=== PATIENT | female | born 1985 | race Caucasian/White ===

== ENCOUNTER 2017-04-12 03:28 | Inpatient (IN) | payer OTHER ==
[2017-04-12] MEDS ORDERED: Sodium Citrate/Citric Acid* 15 ML UDC ONE (07:18)
[2017-04-12] MEDS ORDERED: ceFOXitin 2 GM IVPREMIX* 2 GM/50 ML BAG ONE (07:19)
[2017-04-12] MEDS ORDERED: Morphine PF AMP (0.5MG/ML)* 5 MG/10 ML AMP ONE (07:46)
[2017-04-12] MEDS ORDERED: Nalbuphine* 20 MG/ML 1 ML VIAL IV PRN (08:32)
[2017-04-12] MEDS ORDERED: Naloxone* 0.4 MG/ML 1 ML VIAL IV PRN (08:32)
[2017-04-12] MEDS ORDERED: Ondansetron INJ* 2 MG/ML VIAL IV PRN (08:32)
[2017-04-12] MEDS ORDERED: OXYTOCIN* 10 UNITS/ML 1 ML VIAL ONE (08:37)
[2017-04-12] MEDS ORDERED: Ondansetron INJ* 2 MG/ML VIAL ONE (08:46)
[2017-04-12] MEDS ORDERED: Tetan/Diph/Pertus SYR(Tdap)* 0.5 ML SYR(BOOSTRIX) use SYR IM ONE (09:41)
[2017-04-12] MEDS ORDERED: Glycerin ADULT SUPP PR PRN (09:41)
[2017-04-12] MEDS ORDERED: Witch Hazel PAD* JAR TOPICAL PRN (09:41)
[2017-04-12] MEDS ORDERED: Acetaminophen TAB* 325 MG PO PRN (09:41)
[2017-04-12] MEDS ORDERED: Ibuprofen TAB* 600 MG PO PRN (09:41)
[2017-04-12] MEDS ORDERED: Zolpidem TAB* 5 MG PO PRN (09:41)
[2017-04-12] MEDS ORDERED: Dibucaine 1% 28.35 GM TUBE PR PRN (09:41)
[2017-04-12] MEDS ORDERED: Albuterol HFA INHALER* 8 gm MDI INH PRN (09:43)
[2017-04-12] MEDS ORDERED: Oxytocin in LR* 20 UNITS/1,000 ML BAG IVPB SCH (10:00)
[2017-04-12] MEDS: oxyCODONE/Acetamin 5/325 MG* TAB PO PRN ×3 (10:12→18:51)
[2017-04-12] MEDS: guaiFENesin LIQ* 100 MG/5 ML UDC PO PRN ×2 (11:20→18:51)
[2017-04-12] MEDS: Ibuprofen TAB* 400 MG PO SCH ×3 (13:15→21:34)
[2017-04-12] MEDS: Simethicone TAB* 80 MG TAB.CHEW PO SCH ×3 (14:00→21:34)
[2017-04-12] MEDS: Docusate CAP* 100 MG PO SCH ×2 (16:51→21:34)
--- NOTE | 2017-04-12 21:09 | OP ---
OPERATIVE REPORT: DATE OF OPERATION: 04/12/17 DATE OF : 83 SURGEON: Koko Amaya MD SUPERVIS[address] ROAD ADMINISTRATOR: Dr. Vaughn. ANESTHESIA: Spinal. PRE-OP DIAGNOSES: Previous section, desires permanent sterilization. POST-OP DIAGNOSES: Previous section, desires permanent sterilization. OPERATIVE PROCEDURE: Low transverse section and bilateral tubal ligation. ESTIMATED BLOOD LOSS: 1000 cc. FINDINGS: Include dense adhesions of the right uterus to the anterior abdominal wall, otherwise normal tubes and ovaries. At that time, she had a viable female, Apgars 9 and 9, weight was 8 pounds and 3 ounces. DESCRIPTION OF PROCEDURE: The patient identified, procedure identified as low transverse section and bilateral tubal ligation. The patient was taken to the operating room, prepped and draped in the usual fashion in the left lateral recumbent position under spinal anesthesia. A Pfannenstiel incision was made through the old incision and carried down through fat, fascia , and peritoneum. An Messi retractor was placed. A transverse incision was made in lower uterine segment, extended laterally using blunt dissection. The above was delivered through the incision with ease. Cord was doubly clamped and cut and the was handed to the awaiting medical transcription supervisor. Cord blood was obtained. Placenta delivered manually. The uterus was wiped out with wet lap sponge. The uterine incision was then closed using 0 Polysorb in a running fashion. A second layer was used to imbricate the first layer. Good hemostasis was achieved with 0 Polysorb figure-of- eight sutures. The left fallopian tube was grasped in the fimbriated end, ligated x2 using 0 Polysorb and then excised. On the right side, the right fallopian tube could not visualize with the Messi because of the dense adhesions and the uterus was partially exteriorized and from that position, the fimbriated ends could be visualized. These were crossclamped and ligated x2 and excised. Good hemostasis was verified. The uterus was placed back into the abdominal cavity. The peritoneum was closed using 3-0 Polysorb in a running fashion. The fascia was closed using 0 Polysorb in a running fashion. At this point, the sponge count was then uncorrect and the fascia was reopened and the peritoneum was reopened and a sponge was retrieved. The peritoneum was then closed using 3 -0 Polysorb in a running fashion. Care was taken to close the peritoneum completely using 3-0 Polysorb, good hemostasis again verified in the subrectus layers. The fascia was closed using 0 Polysorb in a running fashion. Good hemostasis achieved in the subcu. The space was closed using 3-0 Polysorb in a simple fashion and the skin was closed with 4-0 Monocryl in a subcuticular fashion. All sponge and instrument counts were correct and the patient returned to recovery room in stable condition. [id number]/[facility] #: [id number] HEALTH SYSTEMStephanie
[2017-04-13] MEDS: oxyCODONE/Acetamin 5/325 MG* TAB PO PRN ×6 (01:13→21:11)
[2017-04-13] MEDS: guaiFENesin LIQ* 100 MG/5 ML UDC PO PRN ×4 (01:17→21:10)
[2017-04-13] MEDS: Ibuprofen TAB* 400 MG PO SCH ×4 (04:06→23:51)
[2017-04-13 07:11] LABS: Hematocrit 28 % (35-47); Hemoglobin 9.6 g/dl (12.0-16.0); Mean Corpuscular HGB Conc 34 g/dl (31-36); Mean Corpuscular Hemoglobin 27 pg (27-31); Mean Corpuscular Volume 79 fL (80-97); Mean Platelet Volume 8 um3 (7.4-10.4); Red Blood Count 3.58 10^6/ul (4.0-5.4); Red Cell Distribution Width 14 % (10.5-15); White Blood Count 11.9 10^3/ul (3.5-10.8)
[2017-04-13] MEDS: Docusate CAP* 100 MG PO SCH ×3 (08:53→21:11)
[2017-04-13] MEDS: Ferrous Gluconate TAB* 324 MG TAB PO SCH ×2 (08:53→21:10)
[2017-04-13] MEDS: Simethicone TAB* 80 MG TAB.CHEW PO SCH ×4 (08:53→21:11)
[2017-04-14] MEDS: oxyCODONE/Acetamin 5/325 MG* TAB PO PRN ×5 (04:04→20:56)
[2017-04-14] MEDS: guaiFENesin LIQ* 100 MG/5 ML UDC PO PRN (07:48)
[2017-04-14] MEDS: Ferrous Gluconate TAB* 324 MG TAB PO SCH ×2 (07:50→20:56)
[2017-04-14] MEDS: Simethicone TAB* 80 MG TAB.CHEW PO SCH ×4 (07:50→20:56)
[2017-04-14] MEDS: Ibuprofen TAB* 400 MG PO SCH ×2 (07:50→16:02)
[2017-04-14] MEDS: Docusate CAP* 100 MG PO SCH ×2 (15:15→20:56)
[2017-04-15] MEDS: Ibuprofen TAB* 400 MG PO SCH ×4 (00:02→07:43)
[2017-04-15] MEDS: oxyCODONE/Acetamin 5/325 MG* TAB PO PRN ×2 (03:56→07:42)
[2017-04-15] MEDS: Docusate CAP* 100 MG PO SCH ×2 (07:07→07:44)
[2017-04-15] MEDS: Simethicone TAB* 80 MG TAB.CHEW PO SCH (07:40)
[2017-04-15] MEDS: Ferrous Gluconate TAB* 324 MG TAB PO SCH (07:44)
[2017-04-15 07:47] VITALS: BP 104/53
== END 2017-04-15 11:39 | disposition home or self-care (01) | DRG 766 ==
LOC: MCHOB 03:28 → UNDOADMIN 03:28 → MCHOB 06:03
PROVIDERS: ADMIT Obstetrics & Gynecology; ATTEND Obstetrics & Gynecology
PROC: 0UB70ZZ Excision of Bilateral Fallopian Tubes, Open Approach (ICD-10-PCS; 2017-04-12)
PROC: 10D00Z1 Extraction of Products of Conception, Low, Open Approach (ICD-10-PCS; principal; 2017-04-12 07:45)
DX: O34.211 Maternal care for low transverse scar from previous cesarean delivery (principal); J45.909 Unspecified asthma, uncomplicated; O99.52 Diseases of the respiratory system complicating childbirth; Z3A.39 39 weeks gestation of pregnancy; Z37.0 Single live birth
CPT/HCPCS: 36415; 85025; 88302; A9270-GY; J0694; J2405; J2590